=== PATIENT | male | born 1990 | race Caucasian/White ===

== ENCOUNTER 2017-06-25 13:53 | Emergency (ER) | payer MEDICAID ==
[~2017-06-25] VITALS: Ht 167.6 cm; Wt 106.0 kg
[2017-06-25 14:12] VITALS: Ht 167.6 cm; Wt 106.0 kg
[2017-06-25] MEDS ORDERED: ONDANSETRON (ODT) 4 MG TAB ODT STA (15:06)
[2017-06-25] MEDS ORDERED: FAMOTIDINE 20 MG TAB PO ONE (15:30)
[2017-06-25] MEDS ORDERED: HYDROCODONE/APAP (5/325) TAB PO ONE (15:30)
[2017-06-25 15:35] LABS: BASOPHILS % 0.1 % (0.0-2.0); EOSINOPHILS # 0.2 10^3/ul (0.0-0.5); EOSINOPHILS % 1.7 % (0.0-7.0); HEMATOCRIT 49.4 % (42.0-52.0); HEMOGLOBIN 17.1 g/dl (14.0-18.0); LYMPHOCYTES # 2.3 10^3/ul (0.8-2.9); LYMPHOCYTES % 19.8 % (15.0-51.0); MEAN CORPUSCULAR HEMOGLOBIN 28.8 pg (29.0-33.0); MEAN CORPUSCULAR HGB CONC 34.6 g/dl (32.0-37.0); MEAN CORPUSCULAR VOLUME 83.3 fl (82.0-101.0); MEAN PLATELET VOLUME 9.5 fl (7.4-10.4); MONOCYTE # 0.6 10^3/ul (0.3-0.9); MONOCYTES % 4.7 % (0.0-11.0); NEUTROPHIL # 8.6 10^3/ul (1.6-7.5); NEUTROPHILS % 73.3 % (39.0-77.0); PLATELET COUNT 346 10^3/UL (140-415); RED BLOOD COUNT 5.93 10^6/ul (4.70-6.10); RED CELL DISTRIBUTION WIDTH 12.7 % (11.5-14.5); WHITE BLOOD COUNT 11.8 10^3/ul (4.8-10.8)
[2017-06-25 15:52] LABS: ALBUMIN 4.9 g/dl (3.3-4.9); ALBUMIN/GLOBULIN RATIO 1.19; BILIRUBIN,INDIRECT 0.3 mg/dl (0-1.1); BILIRUBIN,TOTAL 0.3 mg/dl (0.2-1.3); CALCIUM 9.6 mg/dl (8.4-10.2); CREATININE 0.74 mg/dl (0.61-1.24); POTASSIUM 4.5 mmol/L (3.5-5.1)
--- NOTE | 2017-06-25 16:36 | RADRPT ---
PROCEDURE: CT Abdomen and Pelvis without contrast CLINICAL INDICATION: Abdominal pain TECHNIQUE: Transaxial images were obtained through the abdomen and pelvis on a multi-slice scanner without the intravenous contrast administration. No oral contrast had previously been given. Sagit neena and coronal re-formations were subsequently reconstructed. One or more of the following dose reduction techniques were used: - Automated exposure control. - Adjustment of the mA and/or kV according to patient size. - Use of iterative reconstruction technique. Radiation dose: CTDIvol = 22.05 mGy; DLP = 1597.47 mGy-cm. COMPARISON: No prior studies are available for comparison. FINDINGS: Lung bases: The visualized lung bases appear unremarkable. Liver: The liver is mildly enlarged and diffusely fatty infiltrated with no focal lesion identified. Gallbladder: The wall is not thickened. No radiopaque stones are identified. Bile ducts: The intra and extrahepatic bile ducts are normal in caliber. Pancreas: Appears normal with no mass or inflammation evident. Spleen: Normal in size with no focal lesion. Adrenals: Normal with no mass identified. Kidneys, ureters and bladder: The kidneys are normal in size and there is no mass, pathological calc ification, or hydronephrosis evident. There is no perinephric stranding. The ureters are normal in c aliber and no ureteroliths are identified. The bladder appears unremarkable. Reproductive organs: Unremarkable. Stomach and bowel: The stomach and bowel appear unremarkable without evidence of obstruction or infl ammation. Appendix: A normal-appearing vermiform appendix is evident. Peritoneum: No free intraperitoneal fluid or air is identified. There is a small left fat containing inguinal hernia. Aorta: Normal in caliber with no aneurysmal dilatation. IVC: Unremarkable. Lymph nodes: No pathologically enlarged nodes are identified. Osseous structures: The osseous elements appear intact. IMPRESSION: 1. Mild hepatomegaly with diffuse fatty infiltration but no focal lesion. 2. Small fat containing left inguinal hernia. 3. Otherwise, unremarkable nonenhanced CT scan of the abdomen and pelvis. Physician Eron Date Time Electronically viewed and signed by Physician Eron on 06/25/2017 16:36 RH/
[2017-06-25] MEDS ORDERED: BISM262O23 PO (16:54)
[2017-06-25] MEDS ORDERED: ACET1TAB40 PO (16:54)
--- NOTE | 2017-06-25 17:00 | ERD ---
ER Documentation Chief Complaint Date/Time DATE: 06/25/17 TIME: 16:57 Chief Complaint Complains of abdominal pain and diarrhea x3 days HPI 26-year-old male presents with lower abdominal pain for last 3 days. He also has some intermittent diarrhea. He believes it started after eating some ice cream and thought that he was having an episode of lactose intolerance. Denies blood, fevers or chills. He has nausea but no vomiting. He has pain in the epigastric area as well as the bilateral lower abdominal area. The pain appears resolved with diarrhea episodes. ROS All systems reviewed and are negative except as per history of present illness. Medications Home Meds Active Scripts Bismuth Subsalicylate* (Pepto-Bismol*) 262 Mg/15 Ml Oral.susp, 30 ML PO QID for 4 Days, ML Prov:TIP MONK MD 06/25/17 Acetaminophen with Codeine (Acetaminophen-Cod #3 Tablet) 1 Each Tablet, 1 TAB PO Q6H Y for PAIN, #10 TAB Prov:TIP MONK MD 06/25/17 Allergies Allergies: Coded Allergies: Penicillins (Verified Allergy, Unknown, 12/20/14) PMhx/Soc Medical and Surgical Hx: pt denies Medical Hx, pt denies Surgical Hx Anesthesia Reaction: No Hx Neurological Disorder: No Hx Respiratory Disorders: No Hx Cardiac Disorders: No Hx Psychiatric Problems: No Hx Miscellaneous Medical Probl: No Hx Alcohol Use: No Hx Substance Use: No Hx Tobacco Use: No Physical Exam Vitals Vital Signs Date Time Temp Pulse Resp B/P Pulse Ox O2 Delivery O2 Flow Rate FiO2 06/25/17 14:12 98.3 80 20 129/80 97 Physical Exam Const: [] Letter, [id number], morbidly obese. Head: Atraumatic Eyes: Normal Conjunctiva ENT: Normal External Ears, Nose and Mouth. Neck: Full range of motion..~ No meningismus. Resp: Clear to auscultation bilaterally Cardio: Regular rate and rhythm, no murmurs Abd: Soft, tender in the right and left lower abdomen. No exquisite tenderness at McBurney's point no Morales sign. No rebound., non distended. Normal bowel sounds Skin: No petechiae or rashes Back: No midline or flank tenderness Ext: No cyanosis, or edema Neur: Awake and alert Psych: Normal Mood and Affect Result Diagram: 06/25/17 1530 06/25/17 1530 Results 24 hrs Laboratory Tests Test 06/25/17 15:30 White Blood Count 11.810^3/ul Red Blood Count 5.9310^6/ul Hemoglobin 17.1g/dl Hematocrit 49.4% Mean Corpuscular Volume 83.3fl Mean Corpuscular Hemoglobin 28.8pg Mean Corpuscular Hemoglobin Concent 34.6g/dl Red Cell Distribution Width 12.7% Platelet Count 87378^3/UL Mean Platelet Volume 9.5fl Neutrophils % 73.3% Lymphocytes % 19.8% Monocytes % 4.7% Eosinophils % 1.7% Basophils % 0.1% Nucleated Red Blood Cells % 0.0/100WBC Neutrophils # 8.610^3/ul Lymphocytes # 2.310^3/ul Monocytes # 0.610^3/ul Eosinophils # 0.210^3/ul Basophils # 0.010^3/ul Nucleated Red Blood Cells # 0.010^3/ul Sodium Level 144mmol/L Potassium Level 4.5mmol/L Chloride Level 102mmol/L Carbon Dioxide Level 22mmol/L Anion Gap 25 Blood Urea Nitrogen 11mg/dl Creatinine 0.74mg/dl Glucose Level 99mg/dl Calcium Level 9.6mg/dl Total Bilirubin 0.3mg/dl Direct Bilirubin 0.00mg/dl Indirect Bilirubin 0.3mg/dl Aspartate Amino Transf (AST/SGOT) 181IU/L Alanine Aminotransferase (ALT/SGPT) 355IU/L Alkaline Phosphatase 116IU/L Total Protein 9.0g/dl Albumin 4.9g/dl Globulin 4.10g/dl Albumin/Globulin Ratio 1.19 Lipase 67U/L Current Medications Medications (Trade) Dose Ordered Sig/Naheed Route PRN Reason Start Time Stop Time Status Last Admin Dose Admin Acetaminophen/ Hydrocodone Bitart ([place] (5/325)) 1 tab ONCE ONCE PO 06/25/17 15:30 06/25/17 15:31 DC 06/25/17 15:23 Ondansetron HCl (Zofran Odt) 8 mg ONCE STAT ODT 06/25/17 15:06 06/25/17 15:07 DC 06/25/17 15:24 Famotidine (Pepcid) 20 mg ONCE ONCE PO 06/25/17 15:30 06/25/17 15:31 DC 06/25/17 15:23 Procedures/MDM CBC shows white blood cell count 11.8. CMP is normal and lipase normal. There is elevated transaminitis. Given the lower abdominal pain of uncertain etiology CT abdomen pelvis was performed which shows no evidence of diverticulitis, appendicitis, acute abdomen, abscess. He has evidence of fatty liver and small fat-containing left inguinal hernia Patient presents with lower abdominal pain and epigastric pain and diarrhea for last 3 days. He likely has viral gastroenteritis. The signs or symptoms do not suggest acute abdomen, appendicitis, diverticulitis, obstruction or additional emergent causes of presenting complaints. We treated with Pepto- Bismol and Tylenol 3, instructions for clear fluids and bland diet and further observation at home. The patient was stable with no new complaints during the ER course. Clinically, there is no current evidence to suggest meningitis, sepsis, acute abdomen, pneumonia, acute coronary syndrome, pulmonary embolism, or any other emergent condition appearing to require further evaluation or hospitalization. The patient should certainly return for any new or worsening symptoms per the aftercare instructions. They should otherwise follow-up with her primary care doctor for reevaluation this week. Departure Diagnosis: Primary Impression: Abdominal pain Abdominal location: unspecified location Qualified Code: R10.9 - Abdominal pain, unspecified location Additional Impression: Diarrhea Diarrhea type: unspecified type Qualified Code: R19.7 - Diarrhea, unspecified type Condition: Stable Patient Instructions: Abdominal Pain, Self-Care for Vomiting and Diarrhea Additional Instructions: Studies showed no significant abnormal findings today. Suspect viral gastroenteritis which should resolve the next 1-3 days. Drink fluids at home and recheck for new or worsening symptoms-blood, fevers or WITH primary care doctor. TIP MONK MD Jun 25, 2017 17:00
[2017-06-25 17:01] LABS: ADD UMIC NO; UR ASCORBIC ACID NEGATIVE (NEGATIVE); UR BILIRUBIN (Dip) NEGATIVE (NEGATIVE); UR BLOOD (Dip) NEGATIVE (NEGATIVE); UR CLARITY SLIGHTLY CLOUDY (CLEAR); UR COLOR YELLOW (YELLOW); UR GLUCOSE (Dip) NEGATIVE (NEGATIVE); UR KETONES (Dip) NEGATIVE (NEGATIVE); UR LEUKOCYTE ESTERASE (Dip) NEGATIVE Leu/ul (NEGATIVE); UR MUCUS MODERATE /HPF (NONE SEEN); UR NITRITE (Dip) NEGATIVE (NEGATIVE); UR RBC 1 /HPF (0-5); UR SPECIFIC GRAVITY (Dip) 1.027 (1.003-1.030); UR TOTAL PROTEIN (Dip) NEGATIVE (NEGATIVE); UR UROBILINOGEN (Dip) NEGATIVE (NEGATIVE)
[2017-06-25 17:02] VITALS: BP 126/78; PULSE 84; RESP 16; TEMP 98.1
== END 2017-06-25 18:12 | disposition home or self-care (01) ==
LOC: FTE 13:53
DX: R10.31 Right lower quadrant pain (principal); R19.7 Diarrhea, unspecified; R10.32 Left lower quadrant pain
CPT/HCPCS: 36415; 74176; 80053; 81001; 83690; 85025; Z7502; Z7610; 81003

== ENCOUNTER 2017-10-28 04:46 | Emergency (ER) | payer MEDICAID, OTHER ==
[~2017-10-28] VITALS: Ht 172.7 cm; Wt 106.5 kg
[~2017-10-28 04:46] MED LIST: ACET1TAB40 PO; BISM262O23 PO
[2017-10-28 04:50] VITALS: Ht 172.7 cm; Wt 106.5 kg
[2017-10-28 06:09] LABS: ADD UMIC NO; UR ASCORBIC ACID NEGATIVE (NEGATIVE); UR BILIRUBIN (Dip) NEGATIVE (NEGATIVE); UR BLOOD (Dip) NEGATIVE (NEGATIVE); UR CLARITY CLEAR (CLEAR); UR COLOR YELLOW (YELLOW); UR GLUCOSE (Dip) NEGATIVE (NEGATIVE); UR KETONES (Dip) NEGATIVE (NEGATIVE); UR LEUKOCYTE ESTERASE (Dip) NEGATIVE Leu/ul (NEGATIVE); UR NITRITE (Dip) NEGATIVE (NEGATIVE); UR SPECIFIC GRAVITY (Dip) 1.025 (1.003-1.030); UR TOTAL PROTEIN (Dip) NEGATIVE (NEGATIVE); UR UROBILINOGEN (Dip) NEGATIVE (NEGATIVE)
[2017-10-28 06:16] LABS: BASOPHIL # 0.1 10^3/ul (0.0-0.1); BASOPHILS % 0.5 % (0.0-2.0); EOSINOPHILS # 0.6 10^3/ul (0.0-0.5); EOSINOPHILS % 6.6 % (0.0-7.0); HEMATOCRIT 42.2 % (42.0-52.0); HEMOGLOBIN 14.4 g/dl (14.0-18.0); LYMPHOCYTES # 3.1 10^3/ul (0.8-2.9); MEAN CORPUSCULAR HEMOGLOBIN 28.7 pg (29.0-33.0); MEAN CORPUSCULAR HGB CONC 34.1 g/dl (32.0-37.0); MEAN CORPUSCULAR VOLUME 84.1 fl (82.0-101.0); MEAN PLATELET VOLUME 9.8 fl (7.4-10.4); MONOCYTE # 0.8 10^3/ul (0.3-0.9); MONOCYTES % 8.6 % (0.0-11.0); NEUTROPHILS % 51.8 % (39.0-77.0); PLATELET COUNT 270 10^3/UL (140-415); RED BLOOD COUNT 5.02 10^6/ul (4.70-6.10); RED CELL DISTRIBUTION WIDTH 12.9 % (11.5-14.5); WHITE BLOOD COUNT 9.7 10^3/ul (4.8-10.8)
[2017-10-28 06:30] LABS: ALBUMIN/GLOBULIN RATIO 1.21; BILIRUBIN,INDIRECT 0.3 mg/dl (0-1.1); BILIRUBIN,TOTAL 0.3 mg/dl (0.2-1.3); CALCIUM 9.3 mg/dl (8.4-10.2); CREATININE 0.78 mg/dl (0.61-1.24); TOTAL PROTEIN 7.3 g/dl (6.1-8.1)
--- NOTE | 2017-10-28 06:52 | RADRPT ---
PROCEDURE: CHEST - 1 VIEW CLINICAL INDICATION: 26-year-old male with chest/right upper quadrant pain. TECHNIQUE: A single frontal AP upright portable view of the chest was performed. The images were reviewed on a PACS workstation. COMPARISON: None. FINDINGS: The cardiomediastinal silhouette has a normal appearance. There is a shallow inspiration. There is m inimal bibasilar subsegmental atelectasis. There is no evidence for an infiltrate. The pulmonary va scularity is within normal limits. There is no evidence for pneumothorax or pneumomediastinum. The o sseous structures are intact. IMPRESSION: Shallow inspiration with minimal bibasilar subsegmental atelectasis. .Cayetano Bautista MD, MD Date Time Electronically viewed and signed by .Cayetano Bautista MD, on 10/28/2017 06:52 .M/
[2017-10-28] MEDS ORDERED: FAMO-96 PO (08:28)
--- NOTE | 2017-10-28 08:31 | ERD ---
ER Documentation Chief Complaint Chief Complaint RUQ abd pain x 4 days worst today HPI 26-year-old male presents the emergency department complaining of right upper quadrant pain for the last 4 days. Patient describes a localized, non-provoked right upper quadrant abdominal pain. It does not radiate. It is associated with no nausea or vomiting, diarrhea. Patient reports no fevers or chills. Patient reports no urinary symptoms. The pain is considered mild to moderate at this time but mostly resolved. Patient concerned that he may be developing gallbladder disease and came to the emergency department for evaluation. Upon arrival, patient is comfortable with no significant discomfort at this time ROS All systems reviewed and are negative except as per history of present illness. Medications Home Meds Active Scripts Famotidine* (Pepcid*) 20 Mg Tablet, 20 MG PO BID for 10 Days, #20 TAB Prov:ANN TANNER 10/28/17 Bismuth Subsalicylate* (Pepto-Bismol*) 262 Mg/15 Ml Oral.susp, 30 ML PO QID for 4 Days, ML Prov:TIP MONK MD 06/25/17 Acetaminophen with Codeine (Acetaminophen-Cod #3 Tablet) 1 Each Tablet, 1 TAB PO Q6H Y for PAIN, #10 TAB Prov:TIP MONK MD 06/25/17 Allergies Allergies: Coded Allergies: Penicillins (Verified Allergy, Unknown, 12/20/14) PMhx/Soc Medical and Surgical Hx: pt denies Medical Hx, pt denies Surgical Hx Anesthesia Reaction: No Hx Neurological Disorder: No Hx Respiratory Disorders: No Hx Cardiac Disorders: No Hx Psychiatric Problems: No Hx Miscellaneous Medical Probl: No Hx Alcohol Use: No Hx Substance Use: No Hx Tobacco Use: No Smoking Status: Never smoker FmHx non Contributory for chief complaint Physical Exam Vitals Vital Signs Date Time Temp Pulse Resp B/P Pulse Ox O2 Delivery O2 Flow Rate FiO2 10/28/17 04:50 98.3 68 20 117/68 98 Physical Exam GENERAL: The patient is well developed and appropriate for usual state of health in no apparent distress HEENT: Pupils equal, round, and reactive to light. EOMI. There is no scleral icterus. NECK: C-spine is soft and supple, there is no meningismus. There is no cervical lymphadenopathy. LUNGS: Clear to auscultation bilaterally. There are no rales, wheezes or rhonchi. HEART: Regular rate and rhythm, no murmurs, clicks, rubs or gallops. ABDOMEN: Soft, non-tender, non-distended. There are bowel sounds in all four quadrants. No rebound or guarding. EXTREMITIES: There is no peripheral cyanosis or edema. No focal swelling or erythema. NEURO: The patient moves all four extremities with 5/5 strength. Cranial nerves II - XII are intact. Normal gait. Alert and oriented SKIN: There is no apparent rash or petechiae. HEME/LYMPHATIC: There is no evidence of excessive bruising or lymphedema. PSYCHIATRIC: The patient does not appear anxious or depressed. Result Diagram: 10/28/1743 10/28/1743 Results 24 hrs Laboratory Tests Test 10/28/17 05:43 White Blood Count 9.710^3/ul Red Blood Count 5.0210^6/ul Hemoglobin 14.4g/dl Hematocrit 42.2% Mean Corpuscular Volume 84.1fl Mean Corpuscular Hemoglobin 28.7pg Mean Corpuscular Hemoglobin Concent 34.1g/dl Red Cell Distribution Width 12.9% Platelet Count 66645^3/UL Mean Platelet Volume 9.8fl Neutrophils % 51.8% Lymphocytes % 32.0% Monocytes % 8.6% Eosinophils % 6.6% Basophils % 0.5% Nucleated Red Blood Cells % 0.0/100WBC Neutrophils # 5.010^3/ul Lymphocytes # 3.110^3/ul Monocytes # 0.810^3/ul Eosinophils # 0.610^3/ul Basophils # 0.110^3/ul Nucleated Red Blood Cells # 0.010^3/ul Urine Color YELLOW Urine Clarity CLEAR Urine pH 6.0 Urine Specific [place] 1.025 Urine Ketones NEGATIVEmg/dL Urine Nitrite NEGATIVEmg/dL Urine Bilirubin NEGATIVEmg/dL Urine Urobilinogen NEGATIVEmg/dL Urine Leukocyte Esterase NEGATIVELeu/ul Urine Hemoglobin NEGATIVEmg/dL Urine Glucose NEGATIVEmg/dL Urine Total Protein NEGATIVEmg/dl Sodium Level 141mmol/L Potassium Level 4.0mmol/L Chloride Level 104mmol/L Carbon Dioxide Level 28mmol/L Anion Gap 13 Blood Urea Nitrogen 14mg/dl Creatinine 0.78mg/dl Glucose Level 95mg/dl Calcium Level 9.3mg/dl Total Bilirubin 0.3mg/dl Direct Bilirubin 0.00mg/dl Indirect Bilirubin 0.3mg/dl Aspartate Amino Transf (AST/SGOT) 129IU/L Alanine Aminotransferase (ALT/SGPT) 279IU/L Alkaline Phosphatase 99IU/L Total Protein 7.3g/dl Albumin 4.0g/dl Globulin 3.30g/dl Albumin/Globulin Ratio 1.21 Lipase 87U/L Procedures/MDM Patient was taken to a room, seen and evaluated. Comfort measures were initiated. Diagnostic tests were ordered and reviewed. RADIOLOGY: reviewed with the radiologist REEVALUATION: Patient remained comfortable in the emergency department. Serial examinations of the abdomen remained benign MEDICAL DECISION MAKING: Patient presents with abdominal pain of uncertain etiology. Differential diagnosis considered includes appendicitis, diverticulitis, cholecystitis and other intra-abdominal medical and surgical concerns. I have reviewed the patients lab studies and imaging as well as multiple examinations of the abdomen. At this time, patient shows evidence of a fatty liver, but no evidence of gallstones, pancreatitis, appendicitis. Overall, the patient remains clinically well-appearing and seems appropriate for outpatient care. Departure Diagnosis: Primary Impression: Abdominal pain Condition: Stable Patient Instructions: Abdominal Pain Additional Instructions: See your doctor for follow-up as discussed. Take a copy of your test results, if appropriate, to this follow-up visit. See your doctor or return here if your symptoms do not improve as expected. At any time, please return to the emergency department for any change or worsening in her symptoms. ANN TANNER Oct 28, 2017 08:31
[2017-10-28 08:39] VITALS: BP 115/62; PULSE 66; RESP 20; TEMP 98.3
--- NOTE | 2017-10-28 16:50 | RADRPT ---
PROCEDURE: US Abdomen RUQ. CLINICAL INDICATION: Abdominal pain. TECHNIQUE: Multiple real-time sonographic images were acquired of the patient's right upper quadra nt of the abdomen. COMPARISON: CT 06/25/2017. FINDINGS: Liver: The liver is increased in echogenicity. The liver measures 17.4 cm in length. Portal vein: The visible main portal vein is patent, showing color Doppler flow and hepatopetal flow . Bile Ducts: There is no intrahepatic biliary ductal dilatation. The common bile duct is normal in ca liber, measuring 5-6 mm. Gallbladder: Appears partially contracted. There are no gallstones. There is no gallbladder wall thi ckening. There is no pericholecystic fluid. Kidney: The right kidney measures 11.3 cm. The right kidney demonstrates normal echogenicity. There is no right shadowing calculi, hydronephrosis or renal masses. Pancreas: Not visualized due to shadowing bowel gas. IMPRESSION: 1. Somewhat limited exam due to patient body habitus. 2. Partially contracted gallbladder without definite gallstones identified. No sonographic evidence of acute cholecystitis. 3. Increased echogenicity of the liver, which can be seen with a diffuse hepatocellular process such as hepatic steatosis. RPTAT: AAEE Physician Power Date Time Electronically viewed and signed by Sriram Dorado Physician on 10/28/2017 07:13 PH/
== END 2017-10-28 08:41 | disposition home or self-care (01) ==
LOC: E/R 04:46
DX: R10.11 Right upper quadrant pain (principal)
CPT/HCPCS: 36415; 71010; 76705; 80053; 81003; 83690; 85025; Z7502

== ENCOUNTER 2018-04-28 01:31 | Emergency (ER) | END 2018-04-28 05:48 | disposition home or self-care (01) ==